=== PATIENT | female | born 1995 | race Caucasian/White ===

== ENCOUNTER → 2019-02-01 | Outpatient (CLI) | payer OTHER ==
[2019-02-01 08:51] VITALS: BP 119/66; PULSE 75; RESP 16; TEMP 98.2; BMI 25.4
--- NOTE | 2019-02-01 10:08 | P.GSHP ---
History of Present Illness H&P Date: 02/01/19 Chief Complaint: BRCA + The patient is a 23-year-old white female who presents for breast evaluation. She has not had any radiographic studies of her breast at this time. She states that her last breast examination she was told she had fibroglandular tissue present. She does not feel any lumps or masses in her breasts. She has no nipple discharge or skin changes for which she is concerned. Of significance is the fact that she was tested for the BRCA1 gene and found to be positive. The patient wanted to get tested because of her family history. Family history: 1. maternal grandmother: breast cancer: remission three times of bresat cancer at 65, had a bilateral mastectomy 2. maternal aunt; breast cancer early thirties, at 44 mets to brain 3. mother: breast cancer of breast cancer/lung cancer at 42 Hormonal History: menarche: 10 G0 periods: diagnosed with ovarian cyst, and is on Depo-Prevero Hormones: none Surgery surgical history: Negative Medical history: Negative Social history: Smoke: vaping, 3 mg trying to stop, used to smoke 1 pack/two weeks alcohol: rare drugs:none - Constitutional Constitutional: Reports sweats - EENT Eyes: denies blurred vision, denies pain Ears: deny: decreased hearing, tinnitus Ears, nose, mouth and throat: Denies headache, Denies sore throat - Breasts Breasts: bilateral: as per HPI - Cardiovascular Comment: Tachycardia syndrome - Respiratory Comment: former smoker, vapes now - Gastrointestinal Gastrointestinal: Denies abdominal pain, Denies diarrhea, Denies nausea, Denies vomiting - Genitourinary (Female) Comment: no periods on Depo shot q 3 months Genitourinary: Denies dysuria, Denies hematuria - Menstruation Comment: on Depo-shot for three years Menstruation: Reports period spotting - Musculoskeletal Musculoskeletal: Denies myalgias - Integumentary Integumentary: Denies pruritus, Denies rash - Neurological Neurological: Denies numbness, Denies weakness - Psychiatric Psychiatric: Denies anxiety, Denies depression - Endocrine Endocrine: Denies fatigue, Denies weight change - Hematologic/Lymphatic Comment: none - Allergic/Immunologic Comment: none Past Medical History Past Medical History: No Reported History Additional Past Medical History / Comment(s): -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 History of Any Multi-Drug Resistant Organisms: None Reported Past Surgical History: No Surgical Hx Reported Past Anesthesia/Blood Transfusion Reactions: No Reported Reaction Past Psychological History: No Psychological Hx Reported Smoking Status: Light tobacco smoker Past Alcohol Use History: None Reported Past Drug Use History: None Reported - Past Family History Mother Family Medical History: Cancer Medications and Allergies Home Medications Medication Instructions Recorded Confirmed Type Albuterol Inhaler [Ventolin Hfa 1 puff INHALATION RT-Q6H PRN 04/28/16 04/28/16 History Inhaler] Ibuprofen [Motrin] 200 - 400 mg PO Q6HR PRN 04/28/16 02/01/19 History Allergies Allergy/AdvReac Type Severity Reaction Status Date / Time No Known Allergies Allergy Verified 02/01/19 08:53 Surgical - Exam Vital Signs Temp Pulse Resp BP Pulse Ox 98.2 F 75 16 119/66 98 02/01/19 08:43 02/01/19 08:43 02/01/19 08:43 02/01/19 08:43 02/01/19 08:43 BMI 25.5 - General well developed, well nourished, no distress - Eyes normal ocular movement - ENT no hearing loss, no congestion - Neck no masses, trachea midline - Respiratory normal expansion, normal respiratory effort, clear to auscultation - Cardiovascular Rhythm: regular Heart Sounds: normal: S1, S2 - Abdomen Abdomen: soft, non tender, no guarding, no rigid, no rebound - Integumentary normal turgor - Neurologic no disoriented, no combative - Musculoskeletal normal gait, normal posture - Psychiatric oriented to time, oriented to person, oriented to place, speech is normal, memory intact Breast examination: Right breast: Multi-positional exam fibrocystic changes no dominant masses or nodules of concern Right axilla: No adenopathy of concern Left breast: Multiple positional exam no dominant masses or nodules of concern Left axilla: No adenopathy of concern Assessment and Plan Assessment: Impression: 1. 23-year-old white female with family history of breast cancer 2. Family history of lung cancer 3. Patient BRCA1 + 4. Patient with a history of the dermoid cyst of the ovary 5. Patient on control shot secondary to heavy bleeding with periods Plan: 1. 3-D mammogram and MRI of the breast 2. CEA 125 3. Close follow-up with Dr. Sinclair, [facility] 4. Close surveillance of the breast every 6 months with alternating 3-D mammogram and MRIs 5. Case will be presented at tumor board 6. follow up after the above studies The patient is at increased risk for both breast and ovarian cancer. The gene tic risk is 46-87% lifetime risk of breast cancer, and 39-63% risk of ovarian cancer. The patient is well aware of these risks as well as her family history. At this time the patient would prefer nonoperative management. We have talked about bilateral mastectomy with reconstruction, and bilateral oophorectomy with freezing of the eggs. At this time if it can managed without surgery she would prefer to avoid this. She also understands that the control hormones may aggravate the breast tissue. CC; Dr. Sinclair
== END | disposition home or self-care (01) ==
LOC: WWCWWP 08:34
PROVIDERS: ATTEND Surgery
DX: Z15.01 Genetic susceptibility to malignant neoplasm of breast (principal)
CPT/HCPCS: 86304

== ENCOUNTER → 2019-02-06 | Outpatient (CLI) | payer OTHER ==
--- NOTE | 2019-02-07 09:10 | MM ---
Reason for exam: clinical finding. Baseline mammogram. History: Patient is nulliparous. Family history of breast cancer in mother at age 41, breast cancer in maternal aunt at age 30, and breast cancer in maternal grandmother at age 40. Taking hormonal contraceptives beginning at age 19. Physical Findings: Nurse did not find any significant physical abnormalities on exam. MG 3D Diag Mammo W/Cad TANGELA Bilateral CC and MLO view(s) were taken. The breast tissue is heterogeneously dense. This may lower the sensitivity of mammography. There is no discrete abnormality. These results were verbally communicated with the patient and result sheet given to the patient on 02/06/19. ASSESSMENT: Negative, BI-RAD 1 RECOMMENDATION: Breast MRI of both breasts. Routine screening mammogram of both breasts in 1 year. (yearly per new guidelines)
== END | disposition home or self-care (01) ==
LOC: RADMAMWWP 14:15
PROVIDERS: ATTEND Surgery
DX: N64.4 Mastodynia (principal)
CPT/HCPCS: 77066; G0279; 77062

== ENCOUNTER → 2019-02-09 | Outpatient (CLI) | payer OTHER ==
--- NOTE | 2019-02-12 17:43 | BMR ---
EXAMINATION TYPE: MR breast BILAT wo/w con DATE OF EXAM: 02/09/2019 COMPARISON: 3-D bilateral breast mammogram December 07, 2018 BI-RADS 1 HISTORY: Genetic susceptibility / Family hx CONTRAST: Multiplanar, multisequence images of the breasts were acquired utilizing 6 mL intravenous Gadavist ga dolinium contrast. TECHNIQUE: A series of fat and water weighted images in the long and short axis views of both breasts are obtained in conjunction with dynamic contrast MRI with subtraction technique. Three-dimensional and additional postprocessing imaging is created on independent workstation and reviewed during offi cial interpretation of this study. FINDINGS: Breast parenchyma remains extremely dense bilaterally. T2-weighted images show no significa nt cystic change. No fat-containing lesions are identified on T1 weighted images. No suspicious intra mammary adenopathy is seen on delayed postcontrast images. There is mild symmetric background parench ymal enhancement. With regards to the right breast there is no suspicious masses or pathologic enhancement. No suspicio us skin thickening. Chest wall is intact. Benign axillary lymph nodes are present. With regards to the left breast there is no suspicious masses or pathologic enhancement. Benign-appea ring left axillary lymph nodes are seen. The chest wall is intact. No skin retraction or thickening i s noted. IMPRESSION: No MRI evidence for invasive malignancy in either breast. BI-RADS 1 negative study right breast BI-RADS 1 negative study left breast. Recommendation: Consider annual MRI surveillance in high risk patient.
== END | disposition home or self-care (01) ==
LOC: RADMRIMAIN 15:22
PROVIDERS: ATTEND Surgery
DX: Z15.01 Genetic susceptibility to malignant neoplasm of breast (principal); Z80.3 Family history of malignant neoplasm of breast
CPT/HCPCS: C8937; C8908; A9585; 77049

== ENCOUNTER → 2019-03-22 | Outpatient (CLI) | payer OTHER ==
[2019-03-22 10:09] VITALS: BP 111/73; PULSE 97; RESP 16; TEMP 98.5; BMI 25.4
--- NOTE | 2019-03-22 10:27 | P.PN ---
Subjective Progress Note Date: 03/22/19 The patient is a 23-year-old white female who underwent BRCA1 testing was noted to be positive. She has a strong family history for breast cancer including a mother and in maternal grandmother wall of breast cancer. The patient herself does not feel any lumps or masses of concern in her breasts. She underwent a bilateral breast MRI on . This was benign negative for any evidence of invasive malignancy in either breast. She also had a bilateral mammogram performed on which was BIRADS 1. The patient is reassured with respect to her breast however she will require routine surveillance. The patient also asks regarding possible treatment of the ovaries. She states that she is on Depo shots and has been on them for 5 years. She would prefer to stop the shots and have her ovaries removed. I have requested that she talk to Dr. Paredes concerning this. If she were to have her ovaries removed therefore, causing menopause especially if she were taken estrogen I would more strongly consider mastectomies. Objective - Vital Signs Vital signs: Vital Signs Temp 98.5 F 03/22/19 10:04 Pulse 97 03/22/19 10:04 Resp 16 03/22/19 10:04 BP 111/73 03/22/19 10:04 Pulse Ox 97 03/22/19 10:04 Intake & Output 03/21/19 03/22/19 03/22/19 18:59 06:59 18:59 Weight 61.235 kg Assessment and Plan Assessment: Impression: 1. BRCA1 positive 2. Recent MRI and mammogram of the breast are negative 3. Family history of breast cancer 4. Family history of cancer 5. Patient with a history of dermoid cyst of her ovary 6. Cancer antigen 125:10.6, reference range 0-30 Plan: 1. At least 6 months alternate mammogram and MRI of the breast 2. Follow-up examination every 6 months 3. Close follow-up with Dr. Sinclair CC: Dr. Sinclair
== END | disposition home or self-care (01) ==
LOC: WWCWWP 09:32
PROVIDERS: ATTEND Surgery
DX: Z53.9 Procedure and treatment not carried out, unspecified reason (principal)

== ENCOUNTER → 2021-04-09 | Outpatient (CLI) | payer OTHER ==
[2021-04-09 14:20] VITALS: BP 129/79; PULSE 120; RESP 16; TEMP 98.6
--- NOTE | 2021-04-09 14:49 | P.GSHP ---
History of Present Illness H&P Date: 04/09/21 Chief Complaint: BRCA positive The patient is a 25-year-old white female who presents for breast evaluation. She underwent BRCA1 testing secondary to strong family history for breast cancer including her mother and maternal grandmother who of breast cancer. The patient did have genetic testing done and she was noted to be positive for the BRCA1 gene. Not had any radiographic testing of her breast for approximately year and a half. She doesn't do breast self exams. She is complaining of pain in both of her breasts. She does complain of bilateral breast pain. It is been present for approximately 2 months and has not improved. She has a depo provera shot for 6 years. She gets the shot every three months and the last one was 1 1/2 months ago. She also has a history of an ovarian cyst. Caffiene: 2 cups coffee/day; red bull and monster drinks, MtStarSightings and pepsi nicotine: 1/2 PPD for two years chocolate: occasional Family history: 1. maternal grandmother: breast cancer: remission three times of breast cancer at 65, had a bilateral mastectomy 2. maternal aunt; breast cancer early thirties, at 44 mets to brain 3. mother: breast cancer of breast cancer/lung cancer at 42 Hormonal History: menarche: 10 G0 periods: diagnosed with ovarian cyst, and is on Depo-Prevero Hormones: none Surgery surgical history: Negative Medical history: Negative Social history: Smoke: 1/2 PPD alcohol: rare drugs: Medical marijuana in the past not using now - Constitutional Constitutional: Reports sweats; has not had COVID; has not vaccine - EENT Eyes: denies blurred vision, denies pain Ears: deny: decreased hearing, tinnitus Ears, nose, mouth and throat: Denies headache, Denies sore throat - Breasts Breasts: bilateral: as per HPI - Cardiovascular Comment: Tachycardia syndrome - Respiratory Comment: smoker - Gastrointestinal Gastrointestinal: Denies abdominal pain, Denies diarrhea, Denies nausea, Denies vomiting - Genitourinary (Female) Comment: no periods on Depo shot q 3 months Genitourinary: Denies dysuria, Denies hematuria - Menstruation Comment: on Depo-shot for three years Menstruation: Reports period spotting - Musculoskeletal Musculoskeletal: Denies myalgias - Integumentary Integumentary: Denies pruritus, Denies rash - Neurological Neurological: Denies numbness, Denies weakness - Psychiatric Psychiatric: Denies anxiety, Denies depression - Endocrine Endocrine: Denies fatigue, Denies weight change - Hematologic/Lymphatic Comment: none - Allergic/Immunologic Comment: none - Constitutional Constitutional: Reports chills, Denies fever - EENT Eyes: denies blurred vision, denies pain Ears: deny: decreased hearing, tinnitus Ears, nose, mouth and throat: Reports headache, Denies sore throat - Breasts Breasts: bilateral: as per HPI - Cardiovascular Cardiovascular: Reports chest pain, Denies shortness of breath - Respiratory Respiratory: Denies cough, Denies 7 - Gastrointestinal Gastrointestinal: Denies abdominal pain, Denies diarrhea, Denies nausea, Denies vomiting - Genitourinary (Female) Comment: UTI now Genitourinary: Denies dysuria, Denies hematuria - Menstruation Menstruation: Reports as per HPI - Musculoskeletal Musculoskeletal: Denies myalgias - Integumentary Integumentary: Denies pruritus, Denies rash - Neurological Neurological: Denies numbness, Denies weakness - Psychiatric Psychiatric: Denies anxiety, Denies depression - Endocrine Endocrine: Reports weight change, Denies fatigue - Hematologic/Lymphatic Comment: none - Allergic/Immunologic Allergic/Immunologic: Reports seasonal allergies Past Medical History Past Medical History: No Reported History Additional Past Medical History / Comment(s): -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 History of Any Multi-Drug Resistant Organisms: None Reported Past Surgical History: No Surgical Hx Reported Past Anesthesia/Blood Transfusion Reactions: No Reported Reaction Past Psychological History: No Psychological Hx Reported Past Alcohol Use History: None Reported Past Drug Use History: None Reported - Past Family History Mother Family Medical History: Cancer Medications and Allergies Home Medications Medication Instructions Recorded Confirmed Type Medroxyprogesterone Acetate 150 mg IM ONCE 03/22/19 04/09/21 History [Depo-Provera] Allergies Allergy/AdvReac Type Severity Reaction Status Date / Time No Known Allergies Allergy Verified 04/09/21 14:10 Surgical - Exam BMI 25.5 - General moderate distress - Eyes normal ocular movement - ENT normal nares - Neck no masses, trachea midline - Respiratory normal respiratory effort, clear to auscultation - Cardiovascular Rhythm: regular Heart Sounds: normal: S1, S2 - Abdomen Abdomen: soft, non tender, no guarding, no rigid, no rebound - Integumentary normal turgor - Neurologic no disoriented, no combative - Musculoskeletal normal gait - Psychiatric oriented to time, oriented to person, oriented to place, speech is normal Breast Exam: BRA: 32C inspection: Bilateral grade 1/2 ptosis Palpation: Right breast: Multi-positional exam fibrocystic changes, no dominant masses or nodules of concern Right axilla: No adenopathy of concern Left breast: Multiple positional exam fibrocystic changes, no dominant masses or nodules of concern Left axilla: No adenopathy of concern Assessment and Plan Assessment: Impression: 1. BRCA1 positive patient concerned regarding breast and possible ovarian cancer Plan: 1. Recommend bilateral mammogram and ultrasound 2. If patient does not want any prophylactic surgery or hormonal therapy would recommend 6 month alternation with MRI 3. appointment with Dr. Edgar 4. follow up after above 5. presentation of case at tumor board CC: Dr. Sinclair
== END ==
LOC: WWCWWP 13:42
PROVIDERS: ATTEND Surgery
DX: N64.4 Mastodynia (principal); F17.210 Nicotine dependence, cigarettes, uncomplicated; Z80.3 Family history of malignant neoplasm of breast

== ENCOUNTER → 2021-04-27 | Outpatient (CLI) | payer OTHER ==
--- NOTE | 2021-04-27 13:29 | MM ---
Reason for exam: additional evaluation requested from prior study. Last mammogram was performed 2 years and 3 months ago. History: Patient has breast cancer gene - BRCA1 and is nulliparous. Family history of breast cancer in mother at age 41, breast cancer in maternal aunt at age 30, and breast cancer in maternal grandmother at age 40. Taking hormonal contraceptives beginning at age 19. Physical Findings: Nurse did not find any significant physical abnormalities on exam. MG 3D Diag Mammo W/Cad TANGELA Bilateral CC and MLO view(s) were taken. Prior study comparison: February 06, 2019, bilateral MG 3d diag mammo w/cad TANGELA. The breast tissue is heterogeneously dense. This may lower the sensitivity of mammography. Left 12 o'clock focal asymmetry disperses on additional views. Some questionable calcifications here do not persist on magnification view. These results were verbally communicated with the patient and result sheet given to the patient on 04/27/21. ASSESSMENT: Incomplete: need additional imaging evaluation, BI-RAD 0 RECOMMENDATION: Ultrasound of both breasts.
--- NOTE | 2021-04-27 13:32 | USB ---
Reason for exam: additional evaluation requested from abnormal screening. History: Patient has breast cancer gene - BRCA1 and is nulliparous. Family history of breast cancer in mother at age 41, breast cancer in maternal aunt at age 30, and breast cancer in maternal grandmother at age 40. Taking hormonal contraceptives beginning at age 19. US Breast BILAT Right complete breast ultrasound includes all four quadrants, the retroareolar region and axilla. Finding demonstrates no cystic or solid lesion seen. Left complete breast ultrasound includes all four quadrants, the retroareolar region and axilla. Finding demonstrates no cystic or solid lesion seen. These results were verbally communicated with the patient and result sheet given to the patient on 04/27/21. ASSESSMENT: Negative, BI-RAD 1 RECOMMENDATION: Breast MRI of both breasts in 6 months. Until the patient's surgery, patient may qualify for alternating screening mammogram and screening MRI given BRCA1 gene mutation. Routine screening mammogram of both breasts in 1 year.
== END | disposition home or self-care (01) ==
LOC: RADMAMWWP 09:18
PROVIDERS: ATTEND Surgery
DX: R92.8 Other abnormal and inconclusive findings on diagnostic imaging of breast (principal); Z80.3 Family history of malignant neoplasm of breast
CPT/HCPCS: 77066; 76641; G0279; 77062

== ENCOUNTER → 2021-06-11 | Outpatient (CLI) | payer OTHER ==
[2021-06-11 09:05] VITALS: BP 121/79; PULSE 96; RESP 16; TEMP 98.2
--- NOTE | 2021-06-11 09:06 | P.PN ---
Subjective Progress Note Date: 06/11/21 Principal diagnosis: BRCA 1 + The patient is a 25-year-old white female who presents for breast evaluation. She underwent BRCA1 testing secondary to strong family history for breast cancer including her mother and maternal grandmother who of breast cancer. The patient did have genetic testing done and she was noted to be positive for the BRCA1 gene. They usually she had a bilateral mammogram performed on this was felt to be incomplete and the patient underwent ultrasound of both breast on same day. The recommendation was breast MRI of both breast in 6 months and that this was a negative BIRADS 1 evaluation. She doesn't do breast self exams. She is complaining of pain in both of her breasts. She does complain of bilateral breast pain. It is been present for approximately 4 months and has not improved. She has a depo provera shot for 6 years. She gets the shot every three months and the last one was 1 1/2 months ago. She also has a history of an ovarian cyst. Caffiene: 2 cups coffee/day; red bull and monster drinks, Mt. Dew and pepsi (patient had decreased amonut) nicotine: 1/2 PPD for two years; has decreased chocolate: occasional Family history: 1. maternal grandmother: breast cancer: remission three times of breast cancer at 65, had a bilateral mastectomy 2. maternal aunt; breast cancer early thirties, at 44 mets to brain 3. mother: breast cancer of breast cancer/lung cancer at 42 Hormonal History: menarche: 10 G0 periods: diagnosed with ovarian cyst, and is on Depo-Prevero Hormones: none Surgery surgical history: Negative Medical history: Negative Social history: Smoke: 1/2 PPD alcohol: rare drugs: Medical marijuana in the past not using now - Constitutional Constitutional: Reports sweats; has not had COVID; has not vaccine - EENT Eyes: denies blurred vision, denies pain Ears: deny: decreased hearing, tinnitus Ears, nose, mouth and throat: Denies headache, Denies sore throat - Breasts Breasts: bilateral: as per HPI - Cardiovascular Comment: Tachycardia syndrome - Respiratory Comment: smoker - Gastrointestinal Gastrointestinal: Denies abdominal pain, Denies diarrhea, Denies nausea, Denies vomiting - Genitourinary (Female) Comment: no periods on Depo shot q 3 months Genitourinary: Denies dysuria, Denies hematuria - Menstruation Comment: on Depo-shot for three years Menstruation: Reports period spotting - Musculoskeletal Musculoskeletal: Denies myalgias - Integumentary Integumentary: Denies pruritus, Denies rash - Neurological Neurological: Denies numbness, Denies weakness - Psychiatric Psychiatric: Denies anxiety, Denies depression - Endocrine Endocrine: Denies fatigue, Denies weight change - Hematologic/Lymphatic Comment: none - Allergic/Immunologic Comment: none - Constitutional Constitutional: Reports chills, Denies fever - EENT Eyes: denies blurred vision, denies pain Ears: deny: decreased hearing, tinnitus Ears, nose, mouth and throat: Reports headache, Denies sore throat - Breasts Breasts: bilateral: as per HPI - Cardiovascular Cardiovascular: Reports chest pain, Denies shortness of breath - Respiratory Respiratory: Denies cough - Gastrointestinal Gastrointestinal: Denies abdominal pain, Denies diarrhea, Denies nausea, Denies vomiting - Genitourinary (Female) Comment: UTI now Genitourinary: Denies dysuria, Denies hematuria - Menstruation Menstruation: Reports as per HPI - Musculoskeletal Musculoskeletal: Denies myalgias - Integumentary Integumentary: Denies pruritus, Denies rash - Neurological Neurological: Denies numbness, Denies weakness - Psychiatric Psychiatric: Denies anxiety, Denies depression - Endocrine Endocrine: Reports weight change, Denies fatigue - Hematologic/Lymphatic Comment: none - Allergic/Immunologic Allergic/Immunologic: Reports seasonal allergies Objective - Vital Signs Vital signs: Intake & Output 06/10/21 06/11/21 06/11/21 18:59 06:59 18:59 Weight 68.039 kg - Exam BMI 28.3 - Constitutional General appearance: Present: cooperative - EENT Eyes: Present: EOMI ENT: Present: hearing grossly normal - Neck Neck: Present: normal ROM - Respiratory Respiratory: bilateral: CTA - Cardiovascular Rhythm: regular Heart sounds: normal: S1, S2 - Gastrointestinal General gastrointestinal: Present: soft - Integumentary Integumentary: Present: normal turgor - Musculoskeletal Musculoskeletal: Present: gait normal - Psychiatric Psychiatric: Present: A&O x's 3, appropriate affect, intact judgment & insight - Additional findings Additional findings: Breast Exam: BRA: 32C Inspection: bilateral grade 2/3 ptosis palpation: right breast: multipositional exam no dominant masses or nodules of concern Right axilla: No adenopathy of concern Left breast: Multi-positional exam no dominant masses or nodules of concern Left axilla: No adenopathy of concern Assessment and Plan Assessment: Impression: 1. BRCA1 positive 2. Fibrocystic breast changes 3. Family history of breast cancer Plan: 1. Bilateral skin sparing mastectomy with immediate subpectoral implant reconstruction Risks and benefits of the procedure discussed with the patient. Risks include but are not limited to bleeding, infection, reaction to the anesthetic. The patient understands and wishes to proceed. The patient has been instructed to stop smoking. She has also been instructed to take vitamin C and washed with Dial soap. She understands and will comply.
== END ==
LOC: WWCWWP 08:33
PROVIDERS: ATTEND Surgery
DX: N60.19 Diffuse cystic mastopathy of unspecified breast (principal); F17.210 Nicotine dependence, cigarettes, uncomplicated; Z80.3 Family history of malignant neoplasm of breast

== ENCOUNTER 2021-06-16 07:26 | Day surgery (SDC) | payer OTHER ==
[2021-06-11 15:22] VITALS: BMI 28.3
[~2021-06-16 07:26] MED LIST: DEXAMETHASONE SOD PHOSPHATE 4 MG/ML 1 ML VIAL IV ONE; LIDOCAINE 1% (10MG/ML) FOR IV START INTRADERMA PRN; ONDANSETRON 4 MG/2 ML VIAL IVP ONE; Pre Op ABX Message 1 EACH MISC MISCELLANE ONE; SCOPOLAMINE 1.5MG/72HR PATCH TRANSDERM ONE
[2021-06-16] MEDS: LACTATED RINGERS 1,000 ML IV SCH (08:07)
[2021-06-16] MEDS ORDERED: MIDAZOLAM 2 MG/2 ML VIAL IVP ONE (08:26)
[2021-06-16] MEDS ORDERED: HEPARIN SODIUM,PORCINE 5,000 UNIT/ML 1 ML VIAL ONE (08:38)
[2021-06-16] MEDS ORDERED: HYDROmorphone (PF) 1 MG/ML ONE (08:38)
[2021-06-16] MEDS ORDERED: fentaNYL (PF) 50 MCG/ML 2 ML AMP ONE (08:38)
[2021-06-16] MEDS ORDERED: MIDAZOLAM 2 MG/2 ML VIAL ONE (08:38)
[2021-06-16] MEDS ORDERED: SUCCINYLCHOLINE CHLORIDE 100 MG/5 ML SYR IV ONE (08:38)
[2021-06-16] MEDS ORDERED: PROPOFOL 10 MG/ML 20 ML VIAL IV ONE (08:38)
[2021-06-16] MEDS ORDERED: KETOROLAC 15 MG/ML 1 ML VIAL ONE (08:38)
[2021-06-16] MEDS ORDERED: LIDOCAINE 1% INJ 10MG/ML (20 ML MDV) ONE (08:38)
[2021-06-16] MEDS ORDERED: SODIUM CHLORIDE 0.9% 100 ML with ceFAZolin 2,000 MG IV ONE ×2 (08:45)
--- NOTE | 2021-06-16 10:29 | P.OP ---
Date of Procedure: 06/16/21 Preoperative Diagnosis: BRCA1 positive Postoperative Diagnosis: Same Procedure(s) Performed: Bilateral skin sparing mastectomy Anesthesia: LUIS ANTONIO Surgeon: Kimmy Ruff Estimated Blood Loss (ml): 20 Pathology: other (bilateral breast tissue) Condition: stable Disposition: floor Indications for Procedure: BRCA 1 positive Operative Findings: bilateral dense breast tissue Description of Procedure: Valencia is a 25-year-old white female who is BRCA1 positive. She has opted for bilateral skin sparing mastectomies with immediate reconstruction. Risks and benefits of the procedure were discussed with the patient, she understands and wishes to proceed. The patient was brought to the operative suite. She was seen in the preoperative area by Dr. Blank from plastic surgery and skin markings were performed. Following induction of anesthesia both breasts were prepped and draped in a sterile fashion. The left breast was approached initially. A circumareolar incision was made. This was carried down to the plane between the subcutaneous tissue and the breast tissue. Circumferential removal of the breast was performed down to the pectoralis muscle. Hemostasis was attained using electrocautery device as well as the Harmonic scalpel. The breast was then dissected as muscle again using the Harmonic scalpel and the Bovie. A perforating blood vessels identified which was clamped and ligated. The breast was removed. A short suture was placed superior and a long suture was placed lateral. It was well irrigated. After assured that hemostasis was attained the wound was packed using moist laps. The right breast was then approached. A circumareolar incision was made. This is carried down to the plane between the subcutaneous tissue and the breast tissue. Circumferential removal of the breast was performed onto the pectoralis muscle. Hemostasis was attained using electrocautery device as well as the Harmonic scalpel. The breast was dissected off the muscle again using the Harmonic scalpel. After we were assured that hemostasis was attained the wound was well irrigated. The wound was packed using moist laps. Dr. Blank came and following removal of the breast for the reconstruct ion.
[2021-06-16] MEDS ORDERED: NALOXONE 0.4 MG/ML 1 ML VIAL IV PRN (10:34)
[2021-06-16] MEDS ORDERED: LACTATED RINGERS 1,000 ML IV ONE (10:45)
[2021-06-16] MEDS: HYDROmorphone 0.5 MG/0.5 ML SYRINGE IVP PRN ×2 (12:18→12:45)
[2021-06-16] MEDS: DEXTROSE 5%-0.45% NACL 1,000 ML IV SCH (14:06)
[2021-06-16] MEDS: HYDROmorphone 1 MG/ML 1 ML SYRINGE IVP PRN ×2 (16:13→20:08)
[2021-06-16] MEDS: HEPARIN SODIUM,PORCINE/PF 5,000 UNIT/0.5 ML SYRINGE SQ SCH ×2 (16:13→23:31)
[2021-06-16] MEDS: ONDANSETRON 4 MG/2 ML VIAL IVP PRN (18:23)
[2021-06-16] MEDS: METOCLOPRAMIDE 5 MG/ML 2 ML VIAL IVP PRN (19:33)
--- NOTE | 2021-06-16 20:53 | OP ---
OPERATIVE REPORT SURGEON: Dr. Rudy Acosta. PREOPERATIVE DIAGNOSES: 1. Acquired loss, right and left breast. 2. Status post right and left breast mastectomy. 3. Genetic susceptibility to breast cancer. POSTOPERATIVE DIAGNOSES: 1. Acquired loss, right and left breast. 2. Status post right and left breast mastectomy. 3. Genetic susceptibility to breast cancer. OPERATIVE INDICATIONS: The patient is a 25-year-old female with positive genetics by testing for breast cancer as well as history of multiple family members having breast and ovarian cancer, including her mother, aunt and grandmother. The patient has elected to proceed with prophylactic bilateral simple mastectomies and was referred to my care by her breast cancer surgeon, Dr. Ruff, for breast reconstruction. The patient has elected to proceed with a tissue automotive lube technician style reconstruction. She understands the staged nature of breast reconstructive surgery as well as potential risks and complications related to the surgery, including the added risk of wound healing problems due to her history of tobacco use. The patient has requested I perform these procedures. OPERATIVE PROCEDURE SUMMARY: The patient was seen in the preoperative area. Markings were made and procedure reviewed, all questions answered. She was transported to the operating room, where she was placed in supine position. Following induction of general tracheal anesthesia, the patient was prepped and draped in the usual fashion. Dr. Ruff and her surgical team then proceeded with left and right simple mastectomy. Once completed, I was contacted to come to the operating room. All sponge and needle counts for the prior procedure were correct. There was no active bleeding. Both mastectomy wounds were open and all tissue appeared healthy. The breast reconstruction was initiated on the left side. I identified the pectorals major muscle where it joined the chest wall on the lateral aspect. Loose areolar tissue was divided with cautery here, allowing entry into the potential plane between the pectoralis major and minor muscles, which was bluntly developed at first, and then all medial attachment fibers of the pectoralis major muscle to ribs were released and all inferior attachments. Inferomedially, additional muscle tissue was required for sufficient reconstructive coverage, including rectus abdominis muscle and fascia inferolaterally, external abdominal oblique muscle and fascia, and laterally serratus anterior muscle and fascia were all elevated through this technique. Once a sufficient-sized submuscular pocket was created, irrigation was performed. Hemostasis was excellent. The cavity was packed open with multiple laparotomy sponges that were moist. The same portion of the procedure was now completed on the right side, again identifying the pectoralis major muscle where it joined the chest wall on the lateral aspect, using cautery to gain entry into the potential plane between the pectoralis major and minor muscles which were then bluntly . Medial attachment fibers of the pectoralis major muscle to ribs were released with cautery and all inferior attachments to the ribs were released with cautery. Again additional muscle tissue was required for sufficient reconstructive coverage. Inferomedially, rectus abdominis muscle and fascia, inferolaterally external abdominal oblique muscle and fascia, and laterally serratus anterior muscle and fascia were all elevated until a sufficient-sized submuscular reconstructive pocket was created in a symmetrical fashion to the contralateral side. Irrigation was performed. Hemostasis was good. The cavities were sized and inspected for symmetry. Additional dissection was required. Once symmetry was obtained, they were measured. Gloves were changed and tissue expanders were opened on the field. The tissue expanders were obtained from the [employer], model #133FFX, reference #133 [id number]. Both devices measured 550 mL. The serial number for the left-sided device was [id number] and for the right-sided device [id number]. The expanders were only handled by the surgeon. Once opened, all air was extracted from each automotive lube technician. Each automotive lube technician was filled to a volume of 100 mL initially. The left and right tissue expanders were inserted in the reconstructive cavities. Orientation was ensured under direct vision. Inferior and lateral suture tabs were secured with interrupted 3-0 Vicryl to the chest wall and then the expanders were filled with additional saline until a volume of 250 mL was reached in each automotive lube technician. This appeared optimal, filling the space with not too much tension on either muscle flap. However, the muscle flap could not be approximated over the automotive lube technician, and therefore SurgiMend reconstructive graft was opened onto the field. SurgiMend measured 10 x 15 cm. Once revitalized with room-temperature saline, it was divided into two equal portions with scissors, and each portion of SurgiMend was placed in the reconstructive cavity on the right and left sides, spanning the area where muscle could not be approximated as well as overlapping the muscle tissue. The SurgiMend was sutured into place using interrupted and short running 3-0 Vicryl suture. Complete coverage was obtained. Irrigation was performed. Hemostasis was excellent. A #19 round Alejo channel drain was inserted in each surgical field under the mastectomy skin flaps, brought through separate stab incisions in the right or left anterior lateral chest wall and sutured in place with 2-0 Prolene. The circumareolar mastectomy incisions were now closed using a deep dermal 2-0 Prolene pursestring followed by close approximation of the dermis using interrupted inverted 4-0 Monocryl, and then mahesh completed the epidermal closure. Drains were connected to closed-bulb suction and patent. Surgical hernández were cleansed with saline and dried and covered with postoperative bandages after cleansing using Kerlix squares, 4x4s secured with 3M Medipore tape and drain sponges as well. The patient was then awakened from anesthetic, extubated in the operating room, transferred to the recovery room in good condition with stable vital signs. The estimated blood loss was 20 mL. There were no complications. The final fill in each tissue automotive lube technician was 250 mL. MMODL / IJN: [id number] /
[2021-06-16] MEDS: HYDROcodone/APAP 5-325MG 1 EACH TAB PO PRN (23:31)
[2021-06-17] MEDS: HYDROmorphone 1 MG/ML 1 ML SYRINGE IVP PRN ×3 (01:12→08:27)
[2021-06-17] MEDS: HYDROcodone/APAP 5-325MG 1 EACH TAB PO PRN ×2 (03:15→09:50)
[2021-06-17] MEDS: DEXTROSE 5%-0.45% NACL 1,000 ML IV SCH ×2 (03:15→08:14)
[2021-06-17] MEDS: ONDANSETRON 4 MG/2 ML VIAL IVP PRN (03:16)
[2021-06-17 06:37] LABS: Basophils % (A) 0 %; Eosinophils % (A) 0 %; HCT 37.7 % (34.0-46.0); HGB 12.6 gm/dL (11.4-16.0); Lymphocytes # (A) 1.7 k/uL (1.0-4.8); Lymphocytes % (A) 16 %; MCH 30.8 pg (25.0-35.0); MCHC 33.3 g/dL (31.0-37.0); MCV 92.6 fL (80.0-100.0); Mean Platelet Volume 8.7; Monocytes # (A) 0.6 k/uL (0-1.0); Monocytes % (A) 5 %; Neutrophils # (A) 8.5 k/uL (1.3-7.7); Neutrophils % (A) 77 %; Platelet Count 206 k/uL (150-450); RBC 4.07 m/uL (3.80-5.40); RDW 12.2 % (11.5-15.5)
[2021-06-17] MEDS: LACTATED RINGERS 1,000 ML IV SCH (08:13)
[2021-06-17 08:15] VITALS: BP 110/70; PULSE 85; RESP 16; TEMP 98.1
[2021-06-17] MEDS: HEPARIN SODIUM,PORCINE/PF 5,000 UNIT/0.5 ML SYRINGE SQ SCH (08:24)
[2021-06-17] MEDS: METOCLOPRAMIDE 5 MG/ML 2 ML VIAL IVP PRN (08:24)
--- NOTE | 2021-06-17 10:21 | P.PN ---
Subjective Progress Note Date: 06/17/21 Principal diagnosis: Bilateral mastectomy with subpectoral implant reconstruction for BRCA1 genetic testing/postop day 1 Valencia is a 25-year-old white female postop day #1 bilateral mastectomy with subpectoral wrinkle chaser placement. Postoperatively she initially had some nausea which is improved today. She states that she has pain when she lifts her arms however this appears to be muscular related to her recent surgery. She is feeling better this morning, without nausea. Objective - Vital Signs Vital signs: Vital Signs Temp 98.1 F 06/17/21 08:00 Pulse 85 06/17/21 08:00 Resp 16 06/17/21 08:00 BP 110/70 06/17/21 08:00 Pulse Ox 97 06/17/21 08:00 Intake & Output 06/16/21 06/17/21 06/17/21 18:59 06:59 18:59 Intake Total 1800 Output Total 675 1123 Balance 1125 -1123 Weight 70.8 kg Intake: IV 1800 Output: Drainage 23 Left Chest 10 Right Chest 13 Urine 575 1100 Emesis 60 Estimated Blood Loss 40 Other: # Voids 1 - Constitutional General appearance: Present: cooperative - EENT Eyes: Present: EOMI ENT: Present: hearing grossly normal - Neck Neck: Present: normal ROM - Respiratory Respiratory: bilateral: CTA - Cardiovascular Heart sounds: normal: S1, S2 - Integumentary Integumentary Comment(s): Bilateral incisions clean and dry LORENA output is serous in nature No evidence of any hematoma or infection - Musculoskeletal Musculoskeletal Comment(s): Patient states she has pain when she elevates her arms however she is moving them without any difficulty - Psychiatric Psychiatric: Present: A&O x's 3, appropriate affect, intact judgment & insight - Labs CBC & Chem 7: 06/17/21 06:18 Labs: Abnormal Lab Results - Last 24 Hours (Table) 06/17/21 Range/Units 06:18 WBC 11.0 H (3.8-10.6) k/uL Neutrophils # 8.5 H (1.3-7.7) k/uL Assessment and Plan Assessment: Impression: 1. Postop day #1 bilateral mastectomy with subpectoral wrinkle chaser placement 2. Initial postop nausea which has improved Plan: 1. Teach patient drain care 2. Start diet 3. Encourage exercises to elevate her arms over her head 4. Probable discharge home later today
--- NOTE | 2021-06-17 10:24 | P.DS ---
Providers Attending physician: Kimmy Ruff Primary care physician: Stated None Plan - Discharge Summary Discharge Rx Participant: No New Discharge Prescriptions: No Action Medroxyprogesterone Acetate [Depo-Provera] 150 mg IM ONCE Ascorbic Acid [Vitamin C] 500 mg PO DAILY Multivitamins, Thera [Multivitamin (formulary)] 1 tab PO DAILY Cranberry Fruit Extract [Cranberry] 500 mg PO DAILY Calcium Carbonate [Calcium] 600 mg PO DAILY Discharge Medication List Medroxyprogesterone Acetate [Depo-Provera] 150 mg IM ONCE 03/22/19 [History] Ascorbic Acid [Vitamin C] 500 mg PO DAILY 06/11/21 [History] Calcium Carbonate [Calcium] 600 mg PO DAILY 06/11/21 [History] Cranberry Fruit Extract [Cranberry] 500 mg PO DAILY 06/11/21 [History] Multivitamins, Thera [Multivitamin (formulary)] 1 tab PO DAILY 06/11/21 [ History] Follow up Appointment(s)/Referral(s): [facility], [NON-STAFF] - 1-2 Days Rudy Acosta MD [STAFF PHYSICIAN] - 1 Week Activity/Diet/Wound Care/Special Instructions: Do not drive if taking narcotic pain medication Do not drive until seen by Dr. Ly Teach drain care Discharge Disposition: HOME SELF-CARE
== END 2021-06-17 15:50 | disposition home or self-care (01) ==
LOC: OR 07:26 → 6PED 11:50 → OR 06-17 15:50
PROVIDERS: ATTEND Surgery
DX: Z15.01 Genetic susceptibility to malignant neoplasm of breast (principal); F17.210 Nicotine dependence, cigarettes, uncomplicated; N60.19 Diffuse cystic mastopathy of unspecified breast; Z80.3 Family history of malignant neoplasm of breast; Z20.822 Contact with and (suspected) exposure to COVID-19
CPT/HCPCS: 81025; 85025; 87635; 19303; 19357; C1889; C1763; J2250; J1100; J2765 ×2; J2405 ×2; J0690 ×2; J2001; J1170 ×3; J1885; J0330; J2704; J1644 ×2; 88307

== ENCOUNTER → 2021-06-25 | Outpatient (CLI) | payer OTHER ==
--- NOTE | 2021-06-25 13:14 | P.PN ---
Progress Note - Text Progress Note Date: 06/25/21 Valencia is a 25 -year-old white female status post bilateral skin sparing mastectomy and subpectoral implant reconstruction on [id number]. Pathology is benign bilateral breast tissue. The patient did well until approximately 2 days ago when she states that she had her LORENA drains removed. The left side then became ecchymotic and swollen. She is complaining of bilateral discomfort but worse on the left than the right. Physical examination: Lungs: Clear Heart: S1 and S2 Bilateral incisions clean and dry Mild ecchymosis under the left breast with question of a very small hematoma nothing to drain at this time Impression: Patient doing well postoperative Plan: Follow up with Dr. Acosta Follow up here in one month or sooner if any questions or concerns
[2021-06-25 13:17] VITALS: RESP 18; TEMP 98.4
== END ==
LOC: WWCWWP 12:41
PROVIDERS: ATTEND Surgery
DX: Z09 Encounter for follow-up examination after completed treatment for conditions other than malignant neoplasm (principal); Z90.13 Acquired absence of bilateral breasts and nipples; F17.200 Nicotine dependence, unspecified, uncomplicated

== ENCOUNTER → 2021-08-07 | Outpatient (CLI) | payer OTHER, BC ==
--- NOTE | 2021-08-07 12:39 | P.PN ---
Progress Note - Text Progress Note Date: 08/07/21 Valencia is a 25 -year-old white female status post bilateral skin sparing mastectomy and subpectoral implant reconstruction on [id number]. Pathology is benign bilateral breast tissue. She had the drains removed but then replaced surgically laterally in early June. Those drains were recently removed by Dr. Blank about two weeks ago. At this time she is doing well without complaints. Her range of motion has improved and the pain has decreased. Physical examination: Lungs: Clear Heart: S1 and S2 Bilateral incisions clean and dry Impression: Patient doing well postoperative Plan: Follow up with Dr. Acosta Follow up here 6 months CC: Dr. Sinclair
[2021-08-07 12:42] VITALS: BP 124/90; RESP 18
== END ==
LOC: WWCWWP 12:02
PROVIDERS: ATTEND Surgery
DX: Z48.817 Encounter for surgical aftercare following surgery on the skin and subcutaneous tissue (principal); F17.200 Nicotine dependence, unspecified, uncomplicated

== ENCOUNTER 2021-12-29 07:35 | Day surgery (SDC) | payer BC, OTHER ==
[~2021-12-29 07:35] MED LIST changes: +HYDROmorphone 0.5 MG/0.5 ML SYRINGE IVP PRN; +LACTATED RINGERS 1,000 ML IV SCH; +SCOPOLAMINE 1 MG/72 HR PATCH TRANSDERM ONE; -SCOPOLAMINE 1.5MG/72HR PATCH TRANSDERM ONE
[2021-12-29] MEDS ORDERED: MIDAZOLAM 2 MG/2 ML VIAL IVP ONE (08:47)
[2021-12-29] MEDS ORDERED: diphenhydrAMINE 50 MG/ML 1 ML VIAL ONE (09:34)
[2021-12-29] MEDS ORDERED: MIDAZOLAM 2 MG/2 ML VIAL ONE (09:34)
[2021-12-29] MEDS ORDERED: LIDOCAINE 2% INJ 20 MG/ML (2 ML VIAL) ONE (09:34)
[2021-12-29] MEDS ORDERED: HYDROmorphone (PF) 1 MG/ML ONE (09:34)
[2021-12-29] MEDS ORDERED: SUCCINYLCHOLINE CHLORIDE 100 MG/5 ML SYR IV ONE (09:34)
[2021-12-29] MEDS ORDERED: NEOSTIGMINE 1 MG/ML 10 ML VIAL ONE (09:34)
[2021-12-29] MEDS ORDERED: PROPOFOL 10 MG/ML 20 ML VIAL IV ONE (09:34)
[2021-12-29] MEDS ORDERED: ROCURONIUM 10 MG/ML (5 ML VIAL) IV ONE (09:34)
[2021-12-29] MEDS ORDERED: fentaNYL (PF) 50 MCG/ML 2 ML AMP ONE (09:34)
[2021-12-29] MEDS ORDERED: GLYCOPYRROLATE 0.2 MG/ML 2 ML VIAL ONE (09:34)
[2021-12-29] MEDS ORDERED: SODIUM CHLORIDE 0.9% 100 ML with ceFAZolin 1,000 MG IV ONE ×2 (09:50)
[2021-12-29] MEDS ORDERED: LACTATED RINGERS 1,000 ML IV ONE ×2 (11:20)
[2021-12-29 12:07] VITALS: TEMP 97.9
[2021-12-29] MEDS ORDERED: KETOROLAC 15 MG/ML 1 ML VIAL IVP ONE (12:35)
[2021-12-29] MEDS ORDERED: HYDROmorphone 0.5 MG/0.5 ML SYRINGE IVP ONE (12:35)
[2021-12-29 13:46] VITALS: RESP 16
[2021-12-29] MEDS ORDERED: ONDANSETRON 4 MG/2 ML VIAL ONE (13:58)
[2021-12-29] MEDS ORDERED: ONDANSETRON 4 MG/2 ML VIAL IVP ONE (14:01)
[2021-12-29] MEDS ORDERED: SCOPOLAMINE 1 MG/72 HR PATCH TRANSDERM ONE (14:35)
[2021-12-29 14:56] VITALS: BP 115/69; PULSE 71
--- NOTE | 2021-12-29 14:58 | OP ---
OPERATIVE REPORT DATE OF SURGERY: 12/29/2021. SURGEON: Dr. Rudy Acosta PREOPERATIVE DIAGNOSIS: 1. 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 2. Genetic predisposition to breast cancer. 3. Personal history of bilateral mastectomy. 4. Acquired deformity of right left reconstructed breasts. 5. Loss of right and left breast inframammary folds. POSTOPERATIVE DIAGNOSIS: 1. 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 2. Genetic susceptibility to breast cancer. 3. Personal history of bilateral mastectomy. 4. Acquired deformity of right and left reconstructed breasts. 5. Acquired loss right and left breast inframammary folds. OPERATIVE PROCEDURES: 1. Replace right breast tissue emergency care tech with silicone breast implant for breast reconstruction. 2. Revision right reconstructed breast. 3. Replace left breast tissue emergency care tech with silicone breast implant for breast reconstruction. 4. Revision left reconstructed breast. 5. Reconstruction of right and left breast inframammary folds via local advancement flap, 64 square cm. 6. Implantation of reconstructive graft for right and left breast reconstruction. OPERATIVE INDICATIONS: The patient is a 26-year-old female with genetic susceptibility to breast cancer who underwent bilateral elective mastectomies in May 2021 with immediate reconstruction via tissue emergency care tech technique. Despite some initial trouble with the left-sided breast tissue emergency care tech requiring revisional surgery, she healed and was able to complete the expansion process. She is now returning to surgery for second stage of her breast reconstruction with replacement of her tissue expanders, silicone breast implants, revision of right and left reconstructed breasts due to significant contour irregularities, deformities and asymmetry, as well as reconstruction of right and left inframammary folds that have been lost due to the expansion and mastectomy processes. The patient is aware of potential risks and complications of the surgery and has requested I perform the surgery. OPERATIVE PROCEDURE SUMMARY: The patient was seen in the preoperative area. Markings were made. Procedure was reviewed. All questions were answered. She was transported to the operating room, where she was placed in supine position. Following induction general tracheal anesthesia, the patient was prepped and draped in the usual fashion. The right and left breast mastectomy scars were then marked as well as the area for incision on each side. Then on the right side incision was made following the marking placed, dividing skin in full-thickness fashion with a 10- blade scalpel followed by use of cauterization to divide subcutaneous tissue until reaching the muscle flap surface. At this point extensive dissection was required to release contour irregularities and abnormalities between the skin draping and the underlying layers skin and subcutaneous tissue for muscle flap layers. Extensive dissection was required with cautery, maintaining hemostasis with cautery while dissecting. Once this was completed, incision was made in transverse fashion through the muscle flap layer offset from the skin incision inferiorly, exposing the emergency care tech. The emergency care tech was removed intact. The expansion cavity appeared normal with no granulation tissue, no exudates, and a small amount of fluid. The cavity was irrigated. Complete capsulotomy incision was then made where the capsule joined the chest wall with multiple cruciate incisions through the capsular structure to release this tightness. Attention was now turned toward the left side. Again, incision was made following the outlined diagrammed with a 10-blade scalpel, dividing the skin in full-thickness fashion followed by cauterization to divide subcutaneous tissue until identifying the underlying muscle flap plane. Skin and subcutaneous tissue was then elevated off the muscle flap tissue to release contour irregularities where the scar had formed more tightly to optimize shape. Extensive dissection was required. Hemostasis was maintained with cautery while dissecting. Incision was then made through the muscle flap layer in transverse fashion offset inferiorly from the skin incision. The emergency care tech was exposed and removed intact. The expansion cavity appeared normal with no granulation tissue, no exudates, and a small amount of serous fluid. Cavity was irrigated. Complete capsulotomy incision was made where the capsule joined the chest wall. Multiple cruciate incisions were made through the capsular structure to release the tightness. The tightness on the left side was slightly greater than the . Additional dissection was required on the right and left sides to release muscle tissue superiorly and medially to optimize shape. This was completed with cautery. Irrigation was performed at this point. Inframammary folds were now reconstructed on the right and left sides through the same method, elevating skin and subcutaneous tissue flap through the inferior capsulotomy incision. The fold on each side measured 16 x 2 cm2. Once the flaps were developed with cautery, the flaps were secured to the rib periosteal tissue, advancing the flaps cephalad, creating a crease or fold on each side using interrupted 2-0 Vicryl and 3-0 Vicryl sutures. Discrete inframammary folds were created on each side. They did appear symmetrical. Temporary breast implant sizers were now opened on the field. Ultimately a 495 mL sizer appeared optimal for each reconstructive site. The patient was evaluated in seated-up position for this. She was returned to supine position. Temporary implant sizers were removed, cavities irrigated. Hemostasis was optimal. Gloves were changed and breast implants opened on the field. Both implants were the same from the [facility] [employer] soft breast implant line measuring 495 mL, reference number [id number]. The left- sided serial number was [id number] and the right-sided serial number was [id number]. Devices were only handled by the surgeon. The right and left breast implants were inserted in the reconstructive cavities through a Schumacher funnel no-touch technique. The muscle flap tissue could not be closed over either implant at this point. The implants were temporarily removed, placed in sterile saline bath in each container. SurgiMend reconstructive grafts were opened on the field. One half of a 10 x 15 sheet was required on the right and a full sheet was required on the left to span the gap where the muscle flap could not be closed, as it would have caused distortion of the implants. The SurgiMend was sutured to just above the inframammary fold on the right and left sides, and then the implants were reinserted through the Schumacher funnel no- touch technique. The SurgiMend was advanced over the implants and underneath the remaining muscle flap tissue on the cephalad portion on each side and then inset using interrupted 3-0 Vicryl sutures. Complete coverage was obtained. The skin was now redraped over each reconstructive site and the skin incisions closed, approximating deep dermis using inverted interrupted 4-0 Monocryl followed by closure of superficial dermis and epidermis with running 5-0 Prolene. Surgical hernández were cleansed with saline, dried and covered with postoperative bandages using Kerlix squares secured with 3 Medipore tape, a size 3 white mammary support with additional gauze padding to the lateral aspects. The patient was then awakened for anesthetic, extubated in the operating room, transferred to the recovery room in good condition with stable vital signs. There were no complications. The estimated blood loss was 25 mL. MMODL / IJN: [id number] /
== END 2021-12-29 15:22 | disposition home or self-care (01) ==
LOC: OR 07:35
PROVIDERS: ATTEND Plastic Surgery
DX: Z90.13 Acquired absence of bilateral breasts and nipples (principal); Z15.09 Genetic susceptibility to other malignant neoplasm; Z85.3 Personal history of malignant neoplasm of breast
CPT/HCPCS: 19357; 19380; 14301; 14302; C1789; C1763; J2250; J1200; J1100; J2710; J2405; J0690; J3010; J1170 ×2; J1885; J0330; J2704; J1790; J2001

== ENCOUNTER → 2023-05-12 | Outpatient (CLI) | payer OTHER ==
[2023-05-12 15:12] VITALS: RESP 18
--- NOTE | 2023-05-12 15:22 | P.PN ---
Subjective Progress Note Date: 05/12/23 Principal diagnosis: BRCA 1 (+) status post bilateral mastectomies BRCA 1 positive The patient is a 27-year-old white female status post bilateral mastectomy on 06-16-21. She underwent BRCA1 testing secondary to strong family history for breast cancer including her mother and maternal grandmother who of breast cancer. The patient did have genetic testing done and she was noted to be positive for the BRCA1 gene. She had bilateral breast reconstruction with DR. Marsh. She has been lifting weights and noticed some separation of the skin in the anterior right mastectomy site. The implant appears to be a prepectoral implant directly under the skin. She is following with OB for any ovarian lesions She did notice in the right posterior shoulder near the bra line a cystic lesion which itches, she does not complain of any new lumps masses or nodules of concern in the subcutaneous tissue or skin of the breast. Caffiene: 2 cups coffee/day; red bull and monster drinks, [employer] and pepsi ( has stopped red bull and coffee) nicotine: 1/2 PPD for two years (stopped smoking) chocolate: occasional Family history: 1. maternal grandmother: breast cancer: remission three times of breast cancer at 65, had a bilateral mastectomy 2. maternal aunt; breast cancer early thirties, at 44 mets to brain 3. mother: breast cancer of breast cancer/lung cancer at 42 Hormonal History: menarche: 10 G0 periods: diagnosed with ovarian cyst, and is on Depo-Prevero Hormones: none Surgery surgical history: Negative Medical history: Negative Social history: Smoke: 1/2 PPD alcohol: rare drugs: Medical marijuana edible THC several times a week - Constitutional Constitutional: Reports sweats; has not had COVID; has not vaccine - EENT Eyes: denies blurred vision, denies pain Ears: deny: decreased hearing, tinnitus Ears, nose, mouth and throat: Denies headache, Denies sore throat - Breasts Breasts: bilateral: as per HPI - Cardiovascular Comment: Tachycardia syndrome - Respiratory Comment: smoker - Gastrointestinal Gastrointestinal: Denies abdominal pain, Denies diarrhea, Denies nausea, Denies vomiting - Genitourinary (Female) Comment: no periods on Depo shot q 3 months Genitourinary: Denies dysuria, Denies hematuria - Menstruation Comment: on Depo-shot for three years Menstruation: Reports period spotting - Musculoskeletal Musculoskeletal: Denies myalgias - Integumentary Integumentary: Denies pruritus, Denies rash - Neurological Neurological: Denies numbness, Denies weakness - Psychiatric Psychiatric: Denies anxiety, Denies depression - Endocrine Endocrine: Denies fatigue, Denies weight change - Hematologic/Lymphatic Comment: none - Allergic/Immunologic Comment: none - Constitutional Constitutional: Reports chills, Denies fever - EENT Eyes: denies blurred vision, denies pain Ears: deny: decreased hearing, tinnitus Ears, nose, mouth and throat: Reports headache, Denies sore throat - Breasts Breasts: bilateral: as per HPI - Cardiovascular Cardiovascular: Reports chest pain, Denies shortness of breath - Respiratory Respiratory: Denies cough - Gastrointestinal Gastrointestinal: Denies abdominal pain, Denies diarrhea, Denies nausea, Denies vomiting - Genitourinary (Female) Comment: UTI now Genitourinary: Denies dysuria, Denies hematuria - Menstruation Menstruation: Reports as per HPI - Musculoskeletal Musculoskeletal: Denies myalgias - Integumentary Integumentary: Denies pruritus, Denies rash - Neurological Neurological: Denies numbness, Denies weakness - Psychiatric Psychiatric: Denies anxiety, Denies depression - Endocrine Endocrine: Reports weight change, Denies fatigue - Hematologic/Lymphatic Comment: none - Allergic/Immunologic Allergic/Immunologic: Reports seasonal allergies Past Medical History Past Medical History: No Reported History Additional Past Medical History / Comment(s): -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 History of Any Multi-Drug Resistant Organisms: None Reported Past Surgical History: No Surgical Hx Reported Past Anesthesia/Blood Transfusion Reactions: No Reported Reaction Past Psychological History: No Psychological Hx Reported Past Alcohol Use History: None Reported Past Drug Use History: None Reported - Past Family History Mother Family Medical History: Cancer Medications and Allergies Home Medications Medication Instructions Recorded Confirmed Type Medroxyprogesterone Acetate 150 mg IM ONCE 03/22/19 04/09/21 History [Depo-Provera] Allergies Allergy/AdvReac Type Severity Reaction Status Date / Time No Known Allergies Allergy Verified 04/09/21 14:10 Objective - Vital Signs Vital signs: Vital Signs Temp Pulse Resp 18 05/12/23 14:53 BP Pulse Ox FiO2 Intake & Output 05/11/23 05/12/23 05/12/23 18:59 06:59 18:59 Weight 61.689 kg - Constitutional General appearance: Present: cooperative - EENT Eyes: Present: EOMI ENT: Present: hearing grossly normal - Neck Neck: Present: normal ROM - Respiratory Respiratory: bilateral: CTA - Cardiovascular Rhythm: regular Heart sounds: normal: S1, S2 - Gastrointestinal General gastrointestinal: Present: soft - Integumentary Integumentary: Present: normal turgor - Musculoskeletal Musculoskeletal: Present: gait normal - Psychiatric Psychiatric: Present: A&O x's 3, appropriate affect, intact judgment & insight - Additional findings Additional findings: Chest wall examination: Right chest wall no dominant masses or nodules of concern, in the right shoulder area there is approximately 1 cm cystic lesion at the bra strap line, 4 nevi of concern over her back at the bra line area. Right axilla: No adenopathy of concern Left chest wall: No evidence of any cancer or lesions of concern Left axilla: No adenopathy of concern Assessment and Plan Assessment: Impression: 1. BRCA1 positive patient concerned regarding breast and possible ovarian cancer 2. What I believed to be bilateral prepectoral breast implants/questionable beginning of separation of skin on the anterior aspect of the right chest wall 3. Cystic lesion right shoulder, 3 nevi of concern were outlined back Plan: 1. Excision in the operating room of 4 nevi and cystic lesion at the bra line on her back right side 2. Patient to see Dr. Blank regarding the skin changes on the right chest wall 3. appointment with dermatology CC: Dr. Sinclair
== END ==
LOC: WWCWWP 13:44
PROVIDERS: ATTEND Surgery
DX: D22.9 Melanocytic nevi, unspecified (principal); Z15.09 Genetic susceptibility to other malignant neoplasm; Z85.3 Personal history of malignant neoplasm of breast; Z80.3 Family history of malignant neoplasm of breast; Z87.891 Personal history of nicotine dependence; Z98.82 Breast implant status

== ENCOUNTER → 2023-06-30 | Outpatient (CLI) | payer OTHER ==
[2023-06-30 09:00] VITALS: BP 116/82; PULSE 105; RESP 18; TEMP 98.4
--- NOTE | 2023-06-30 09:21 | P.PN ---
Subjective Progress Note Date: 06/30/23 Principal diagnosis: Cystic lesion at brought line right side back/4 nevi of concern BRCA 1 (+) status post bilateral mastectomies The patient is a 27-year-old white female status post bilateral mastectomy on 06-16-21. She underwent BRCA1 testing secondary to strong family history for breast cancer including her mother and maternal grandmother who of breast cancer. The patient did have genetic testing done and she was noted to be positive for the BRCA1 gene. She had bilateral cystectomy and breast reconstruction with DR. Marsh. She has been lifting weights and noticed some separation of the skin in the anterior right mastectomy site. The implant appears to be a prepectoral implant directly under the skin. She is following with OB for any ovarian lesions She did notice in the right posterior shoulder near the bra line a cystic lesion which itches, she does not complain of any new lumps masses or nodules of concern in the subcutaneous tissue or skin of the breast. Caffiene: 2 cups coffee/day; red bull and monster drinks, [employer] and [employer] ( has stopped red bull and coffee) nicotine: 1/2 PPD for two years (stopped smoking) chocolate: occasional Family history: 1. maternal grandmother: breast cancer: remission three times of breast cancer at 65, had a bilateral mastectomy 2. maternal aunt; breast cancer early thirties, at 44 mets to brain 3. mother: breast cancer of breast cancer/lung cancer at 42 Hormonal History: menarche: 10 G0 periods: diagnosed with ovarian cyst, and is on Depo-Prevero Hormones: none Surgery surgical history: Negative Medical history: Negative Social history: Smoke: 1/2 PPD alcohol: rare drugs: Medical marijuana edible THC several times a week - Constitutional Constitutional: Reports sweats; has not had COVID; has not vaccine - EENT Eyes: denies blurred vision, denies pain Ears: deny: decreased hearing, tinnitus Ears, nose, mouth and throat: Denies headache, Denies sore throat - Breasts Breasts: bilateral: as per HPI - Cardiovascular Comment: Tachycardia syndrome - Respiratory Comment: smoker - Gastrointestinal Gastrointestinal: Denies abdominal pain, Denies diarrhea, Denies nausea, Denies vomiting - Genitourinary (Female) Comment: no periods on Depo shot q 3 months Genitourinary: Denies dysuria, Denies hematuria - Menstruation Comment: on Depo-shot for three years Menstruation: Reports period spotting - Musculoskeletal Musculoskeletal: Denies myalgias - Integumentary Integumentary: Denies pruritus, Denies rash - Neurological Neurological: Denies numbness, Denies weakness - Psychiatric Psychiatric: Denies anxiety, Denies depression - Endocrine Endocrine: Denies fatigue, Denies weight change - Hematologic/Lymphatic Comment: none - Allergic/Immunologic Comment: none - Constitutional Constitutional: Reports chills, Denies fever - EENT Eyes: denies blurred vision, denies pain Ears: deny: decreased hearing, tinnitus Ears, nose, mouth and throat: Reports headache, Denies sore throat - Breasts Breasts: bilateral: as per HPI - Cardiovascular Cardiovascular: Reports chest pain, Denies shortness of breath - Respiratory Respiratory: Denies cough - Gastrointestinal Gastrointestinal: Denies abdominal pain, Denies diarrhea, Denies nausea, Denies vomiting - Genitourinary (Female) Comment: UTI now Genitourinary: Denies dysuria, Denies hematuria - Menstruation Menstruation: Reports as per HPI - Musculoskeletal Musculoskeletal: Denies myalgias - Integumentary Integumentary: Denies pruritus, Denies rash - Neurological Neurological: Denies numbness, Denies weakness - Psychiatric Psychiatric: Denies anxiety, Denies depression - Endocrine Endocrine: Reports weight change, Denies fatigue - Hematologic/Lymphatic Comment: none - Allergic/Immunologic Allergic/Immunologic: Reports seasonal allergies Past Medical History Past Medical History: No Reported History Additional Past Medical History / Comment(s): -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 History of Any Multi-Drug Resistant Organisms: None Reported Past Surgical History: No Surgical Hx Reported Past Anesthesia/Blood Transfusion Reactions: No Reported Reaction Past Psychological History: No Psychological Hx Reported Past Alcohol Use History: None Reported Past Drug Use History: None Reported - Past Family History Mother Family Medical History: Cancer Medications and Allergies Home Medications Medication Instructions Recorded Confirmed Type Medroxyprogesterone Acetate 150 mg IM ONCE 03/22/19 04/09/21 History [Depo-Provera] Allergies Allergy/AdvReac Type Severity Reaction Status Date / Time No Known Allergies Allergy Verified 04/09/21 14:10 Objective - Vital Signs Vital signs: Vital Signs Temp 98.4 F 06/30/23 08:28 Pulse 105 H 06/30/23 08:28 Resp 18 06/30/23 08:28 BP 116/82 06/30/23 08:28 Pulse Ox 94 L 06/30/23 08:28 FiO2 Intake & Output 06/29/23 06/30/23 06/30/23 18:59 06:59 18:59 Weight 61.235 kg - Constitutional General appearance: Present: cooperative - EENT Eyes: Present: EOMI ENT: Present: hearing grossly normal - Neck Neck: Present: normal ROM - Respiratory Respiratory: bilateral: CTA - Cardiovascular Rhythm: regular Heart sounds: normal: S1, S2 - Integumentary Integumentary: Present: normal turgor - Musculoskeletal Musculoskeletal: Present: gait normal - Psychiatric Psychiatric: Present: A&O x's 3, appropriate affect, intact judgment & insight - Additional findings Additional findings: Chest wall examination: Right chest wall no dominant masses or nodules of concern, in the right shoulder area there is approximately 1 cm cystic lesion at the bra strap line, 4 nevi of concern over her back at the bra line area. Right axilla: No adenopathy of concern Left chest wall: No evidence of any cancer or lesions of concern Left axilla: No adenopathy of concern Assessment and Plan Assessment: Impression: 1. BRCA1 positive patient concerned regarding breast and possible ovarian cancer 2. What I believed to be bilateral prepectoral breast implants/questionable beginning of separation of skin on the anterior aspect of the right chest wall 3. Cystic lesion right shoulder, 3 nevi of concern were outlined back Plan: 1. Excision in the operating room of 4 nevi; right side of back near bra line and cystic lesion at the bra line on her back right side 2. Patient saw Dr. Blank regarding the skin changes on the right chest wall is not concerned about this 3. appointment with dermatology CC: Dr. Sinclair
== END ==
LOC: WWCWWP 08:28
PROVIDERS: ATTEND Surgery
DX: D22.9 Melanocytic nevi, unspecified (principal); C56.9 Malignant neoplasm of unspecified ovary; F17.210 Nicotine dependence, cigarettes, uncomplicated; Z15.01 Genetic susceptibility to malignant neoplasm of breast; Z98.82 Breast implant status; Z15.09 Genetic susceptibility to other malignant neoplasm

== ENCOUNTER → 2023-09-09 | Outpatient (CLI) | payer OTHER ==
--- NOTE | 2023-09-09 14:57 | P.PN ---
Subjective Progress Note Date: 09/09/23 09-09-23 Principal diagnosis: Cystic lesion at bra line right side back/4 nevi of concern BRCA 1 (+) status post bilateral mastectomies The patient is a 27-year-old white female status post bilateral mastectomy on 06-16-21. She underwent BRCA1 testing secondary to strong family history for breast cancer including her mother and maternal grandmother who of breast cancer. The patient did have genetic testing done and she was noted to be positive for the BRCA1 gene. She had bilateral cystectomy and breast reconstruction with DR. Marsh. She has been lifting weights and noticed some separation of the skin in the anterior right mastectomy site. The implant appears to be a prepectoral implant directly under the skin. She is following with OB for any ovarian lesions She did notice in the right posterior shoulder near the bra line a cystic lesion which itches, this seems to have resolved she does not complain of any new lumps masses or nodules of concern in the subcutaneous tissue or skin of the breast. Caffiene: 2 cups coffee/day; red bull and monster drinks, [employer] and [employer] ( has stopped red bull and coffee) nicotine: 1/2 PPD for two years (stopped smoking) chocolate: occasional Family history: 1. maternal grandmother: breast cancer: remission three times of breast cancer at 65, had a bilateral mastectomy 2. maternal aunt; breast cancer early thirties, at 44 mets to brain 3. mother: breast cancer of breast cancer/lung cancer at 42 Hormonal History: menarche: 10 G0 periods: diagnosed with ovarian cyst, and is on Depo-Prevero Hormones: none Surgery surgical history: Negative Medical history: Negative Social history: Smoke: 1/2 PPD alcohol: rare drugs: Medical marijuana edible THC several times a week - Constitutional Constitutional: Reports sweats; has not had COVID; has not vaccine - EENT Eyes: denies blurred vision, denies pain Ears: deny: decreased hearing, tinnitus Ears, nose, mouth and throat: Denies headache, Denies sore throat - Breasts Breasts: bilateral: as per HPI - Cardiovascular Comment: Tachycardia syndrome - Respiratory Comment: smoker - Gastrointestinal Gastrointestinal: Denies abdominal pain, Denies diarrhea, Denies nausea, Denies vomiting - Genitourinary (Female) Comment: no periods on Depo shot q 3 months Genitourinary: Denies dysuria, Denies hematuria - Menstruation Comment: on Depo-shot for three years Menstruation: Reports period spotting - Musculoskeletal Musculoskeletal: Denies myalgias - Integumentary Integumentary: Denies pruritus, Denies rash - Neurological Neurological: Denies numbness, Denies weakness - Psychiatric Psychiatric: Denies anxiety, Denies depression - Endocrine Endocrine: Denies fatigue, Denies weight change - Hematologic/Lymphatic Comment: none - Allergic/Immunologic Comment: none - Constitutional Constitutional: Reports chills, Denies fever - EENT Eyes: denies blurred vision, denies pain Ears: deny: decreased hearing, tinnitus Ears, nose, mouth and throat: Reports headache, Denies sore throat - Breasts Breasts: bilateral: as per HPI - Cardiovascular Cardiovascular: Reports chest pain, Denies shortness of breath - Respiratory Respiratory: Denies cough - Gastrointestinal Gastrointestinal: Denies abdominal pain, Denies diarrhea, Denies nausea, Denies vomiting - Genitourinary (Female) Comment: UTI now Genitourinary: Denies dysuria, Denies hematuria - Menstruation Menstruation: Reports as per HPI - Musculoskeletal Musculoskeletal: Denies myalgias - Integumentary Integumentary: Denies pruritus, Denies rash - Neurological Neurological: Denies numbness, Denies weakness - Psychiatric Psychiatric: Denies anxiety, Denies depression - Endocrine Endocrine: Reports weight change, Denies fatigue - Hematologic/Lymphatic Comment: none - Allergic/Immunologic Allergic/Immunologic: Reports seasonal allergies Past Medical History Past Medical History: No Reported History Additional Past Medical History / Comment(s): -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 History of Any Multi-Drug Resistant Organisms: None Reported Past Surgical History: No Surgical Hx Reported Past Anesthesia/Blood Transfusion Reactions: No Reported Reaction Past Psychological History: No Psychological Hx Reported Past Alcohol Use History: None Reported Past Drug Use History: None Reported - Past Family History Mother Family Medical History: Cancer Medications and Allergies Home Medications Medication Instructions Recorded Confirmed Type Medroxyprogesterone Acetate 150 mg IM ONCE 03/22/19 04/09/21 History [Depo-Provera] Allergies Allergy/AdvReac Type Severity Reaction Status Date / Time No Known Allergies Allergy Verified 04/09/21 14:10 Objective - Vital Signs Vital signs: Vital Signs Temp 98.4 F 09/09/23 14:39 Pulse 74 09/09/23 14:39 Resp 15 09/09/23 14:39 BP 133/92 09/09/23 14:39 Pulse Ox 98 09/09/23 14:39 FiO2 Intake & Output 09/08/23 09/09/23 09/09/23 18:59 06:59 18:59 Weight 63.957 kg - Constitutional General appearance: Present: cooperative - EENT Eyes: Present: EOMI ENT: Present: hearing grossly normal - Neck Neck: Present: normal ROM - Respiratory Respiratory: bilateral: CTA - Cardiovascular Heart sounds: normal: S1, S2 - Integumentary Integumentary Comment(s): 4 nevi over her back at the bra line area Integumentary: Present: normal turgor - Musculoskeletal Musculoskeletal: Present: gait normal - Psychiatric Psychiatric: Present: A&O x's 3, appropriate affect, intact judgment & insight - Additional findings Additional findings: Chest wall examination: Right chest wall no dominant masses or nodules of concern, in the right shoulder area there is approximately 1 cm cystic lesion at the bra strap line whihc has resolved 4 nevi of concern over her back at the bra line area. Right axilla: No adenopathy of concern Left chest wall: No evidence of any cancer or lesions of concern Left axilla: No adenopathy of concern Assessment and Plan Assessment: Impression: 1. BRCA1 positive patient concerned regarding breast and possible ovarian cancer 2. What I believed to be bilateral prepectoral breast implants/questionable beginning of separation of skin on the anterior aspect of the right chest wall 3. Cystic lesion right shoulder resolved, 4 nevi of concern were noted on her back Plan: 1. She will resection of the nevi in the operating room and do them in the office 2 at a time 2. Patient saw Dr. Blank regarding the skin changes on the right chest wall is not concerned about this 3. appointment with dermatology 4. She will have her customer engagement representative do a CA-125 panel CC: Dr. Sinclair
[2023-09-09 15:07] VITALS: BP 133/92; PULSE 74; RESP 15; TEMP 98.4
== END ==
LOC: WWCWWP 13:47
PROVIDERS: ATTEND Surgery
DX: Z15.01 Genetic susceptibility to malignant neoplasm of breast (principal); D22.9 Melanocytic nevi, unspecified; Z80.3 Family history of malignant neoplasm of breast; Z87.891 Personal history of nicotine dependence; Z98.82 Breast implant status

== ENCOUNTER 2024-04-25 21:26 | Emergency (ER) | payer OTHER ==
--- NOTE | 2024-04-25 21:34 | ED ---
Recheck HPI - General Chief Complaint: Recheck/Abnormal Lab/Rx Stated Complaint: Covid+ Time Seen by Provider: 04/25/24 21:33 Source: patient, RN notes reviewed Mode of arrival: ambulatory Limitations: no limitations - History of Present Illness Initial Comments: 28-year-old female presented to ER with a chief complaint of cough, sore throat and headache. Symptoms started this morning. Patient denies any fevers. Patient states she visited a friend and had a large who was COVID-positive. Patient denies any difficulty breathing or wheezing. Patient states she took 2 at home COVID test 1 was positive and the other was negative. - Related Data Previous Rx's Medication Instructions Recorded Nirmatrelvir/Ritonavir [Paxlovid 1 each PO BID #1 each 04/25/24 300-100 mg Dose Pack] Allergies Allergy/AdvReac Type Severity Reaction Status Date / Time No Known Allergies Allergy Verified 04/25/24 21:32 Review of Systems ROS Statement: Those systems with pertinent positive or pertinent negative responses have been documented in the HPI. ROS Other: All systems not noted in ROS Statement are negative. Past Medical History Past Medical History: No Reported History Additional Past Medical History / Comment(s): Positive BRCA 1 Gene. ovarian cysts History of Any Multi-Drug Resistant Organisms: None Reported Past Surgical History: Breast Surgery Additional Past Surgical History / Comment(s): 06/15/21 double mastectomy with expanders. emergency surgery .07/14 infection in incision of left breast which opened. ( surgery removed expanders cleaned area and received antibiotics and replaced expanders) Past Anesthesia/Blood Transfusion Reactions: Postoperative Nausea & Vomiting (PONV) Additional Past Anesthesia/Blood Transfusion Reaction / Comment(s): slow to wake up from anesthesia Past Psychological History: No Psychological Hx Reported Smoking Status: Former smoker Past Alcohol Use History: None Reported, Occasional Past Drug Use History: Marijuana - Past Family History Mother Family Medical History: Cancer Additional Family Medical History / Comment(s): breast, lungs. etoh abuse Father Family Medical History: Diabetes Mellitus Additional Family Medical History / Comment(s): etoh abuse. end stage renal failure General Exam - General Exam Comments Initial Comments: Visual Physical Exam Vital signs reviewed General: Well-appearing, nontoxic, no acute distress. Head: Normocephalic, atraumatic Eyes: PERRLA, EOMI ENT: Airway patent Chest: Nonlabored breathing Skin: No visual rash, normal skin tone Neuro: Alert and oriented 3 Musculoskeletal: No gross abnormalities Limitations: no limitations General appearance: alert, in no apparent distress ENT exam: Present: normal exam, normal oropharynx, mucous membranes moist, TM's normal bilaterally Neck exam: Present: normal inspection. Absent: tenderness, meningismus, lymphadenopathy Respiratory exam: Present: normal lung sounds bilaterally. Absent: respiratory distress, wheezes, rales, rhonchi, stridor Cardiovascular Exam: Present: regular rate, normal rhythm, normal heart sounds. Absent: systolic murmur, diastolic murmur, rubs, gallop, clicks Extremities exam: Present: normal inspection, full ROM, normal capillary refill. Absent: tenderness, pedal edema, joint swelling, calf tenderness Neurological exam: Present: alert, oriented X3, CN II-XII intact Skin exam: Present: warm, dry, intact, normal color. Absent: rash Course Vital Signs 04/25/24 04/25/24 21:27 22:40 Temperature 98.9 F 99.4 F Pulse Rate 99 89 Respiratory 18 17 Rate Blood Pressure 132/81 143/78 O2 Sat by Pulse 98 98 Oximetry Medical Decision Making - Medical Decision Making I performed the quick note portion of this chart. Electronically signed by Tin Mock PA-C Was pt. sent in by a medical professional or institution (KATRINA Galvez, SHIFT LAB TECHNICIAN, urgent care, hospital, or alf...) When possible be specific @ -No Did you speak to anyone other than the patient for history (EMS, parent, family, police, friend...)? What history was obtained from this source @ -No Did you review nursing and triage notes (agree or disagree)? Why? @ -I reviewed and agree with nursing and triage notes Were old charts reviewed (outside hosp., previous admission, EMS record, old EKG, old radiological studies, urgent care reports/EKG's, alf records)? Report findings @ -No old charts were reviewed Differential Diagnosis (chest pain, altered mental status, abdominal pain women, abdominal pain men, vaginal bleeding, weakness, fever, dyspnea, syncope, headache, dizziness, GI bleed, back pain, seizure, CVA, palpatations, mental health, musculoskeletal)? @ -COVID, RSV, influenza, viral sinusitis, pneumonia this list is not meant to be all-inclusive EKG interpreted by me (3pts min.). @ -None done X-rays interpreted by me (1pt min.). @ -None done CT interpreted by me (1pt min.). @ -None done U/S interpreted by me (1pt. min.). @ -None done What testing was considered but not performed or refused? (CT, X-rays, U/S, labs)? Why? @ -None What meds were considered but not given or refused? Why? @ -None Did you discuss the management of the patient with other professionals (professionals i.e. , PA, SHIFT LAB TECHNICIAN, lab, RT, psych nurse, social services designee, offset label rewinder, teacher, community relations officer, supervisor case loading)? Give summary @ -No Was smoking cessation discussed for >3mins.? @ -No Was critical care preformed (if so, how long)? @ -No Were there social determinants of health that impacted care today? How? (Homelessness, low income, unemployed, alcoholism, drug addiction, transportation, low edu. Level, literacy, decrease access to med. care, skilled nursing, rehab)? @ -No Was there de-escalation of care discussed even if they declined (Discuss DNR or withdrawal of care, Hospice)? DNR status @ -No What co-morbidities impacted this encounter? (DM, HTN, Smoking, COPD, CAD, Cancer, CVA, ARF, Chemo, Hep., AIDS, mental health diagnosis, sleep apnea, morbid obesity)? @ -None Was patient admitted / discharged? Hospital course, mention meds given and route, prescriptions, significant lab abnormalities, going to OR and other pertinent info. @ -Discharge. 1-year-old female presented to ER with a chief complaint of cough, congestion and COVID exposure. History and physical exam completed. Vitals within normal limits. Patient in no signs of acute distress and nontoxic-appearing. Exam unremarkable. Viral swabs positive for COVID. Influenza and RSV negative. Paxlovid prescribed. Advise close follow-up with PCP. Return parameters discussed. Patient discharged stable condition. Patient verbally expressed understanding agree with care plan. Case discussed with ED attending Dr. Abrams. Undiagnosed new problem with uncertain prognosis? @ -No Drug Therapy requiring intensive monitoring for toxicity (Heparin, Nitro, Insulin, Cardizem)? @ -No Were any procedures done? @ -No Diagnosis/symptom? @ -COVID-19/acute viral sinusitis Acute, or Chronic, or Acute on Chronic? @ -Acute Uncomplicated (without systemic symptoms) or Complicated (systemic symptoms)? @ -Uncomplicated Side effects of treatment? @ -No Exacerbation, Progression, or Severe Exacerbation? @ -No Poses a threat to life or bodily function? How? (Chest pain, [place], [place], pneumonia, PE, COPD, DKA, ARF, appy, cholecystitis, CVA, Diverticulitis, Homicidal, Suicidal, threat to staff... and all critical care pts) @ -No - Lab Data Lab Results 04/25/24 Range/Units 21:34 Influenza Type A (PCR) Not Detected (Not Detectd) Influenza Type B (PCR) Not Detected (Not Detectd) RSV (PCR) Not Detected (Not Detectd) SARS-CoV-2 (PCR) Detected A (Not Detectd) Disposition Clinical Impression: COVID-19, Acute viral sinusitis Disposition: HOME SELF-CARE Condition: Stable Instructions (If sedation given, give patient instructions): Coronavirus Disease 2019 (COVID-19) Additional Instructions: Follow-up with PCP. Return to the ER for any new or worsening symptoms. Prescriptions: Nirmatrelvir/Ritonavir [Paxlovid 300-100 mg Dose Pack] 1 each PO BID #1 each Is patient prescribed a controlled substance at d/c from ED?: No Referrals: None,Stated [Primary Care Provider] - 1-2 days Forms: Area PCPs Time of Disposition: 22:32
[2024-04-25 22:41] VITALS: BP 143/78; PULSE 89; RESP 17; TEMP 99.4
== END 2024-04-25 22:39 | disposition home or self-care (01) ==
LOC: EC 21:26
DX: U07.1 COVID-19 (principal); J01.90 Acute sinusitis, unspecified; Z87.891 Personal history of nicotine dependence
CPT/HCPCS: 87636; 99283